=== PATIENT | female | born 1990 | race Two or more races ===

== ENCOUNTER → 2019-05-12 15:49 | Outpatient (CLI) | payer OTHER, MEDICAID, SELFPAY ==
[2019-05-12 16:24] LABS: ROM Internal Control Test YES-OK TO RESULT pt. (Internal QC); ROM Patient Test Negative (Negative); Record Kit Lot#, ROM+ J8255
== END ==
PROVIDERS: Visit Provider Obstetrics & Gynecology
DX: Z34.83 Encounter for supervision of other normal pregnancy, third trimester (principal)
CPT/HCPCS: 84112